=== PATIENT | male | born 1945 | race Caucasian/White ===

== ENCOUNTER 2017-10-22 17:13 | Observation (INO) ==
--- NOTE | 2017-10-22 17:48 | Emergency Department Note ---
ED Disposition Clinical Impression: Vomiting and diarrhea, Alcohol consumption heavy, Muscle cramps, CAD (coronary artery disease) Disposition: Home, Self-Care Condition on Discharge: Fair - Critical Care Critical Care Time: No Attestation: On , the high probability of a clinically significant, sudden or life threatening deterioration of the following system(s) required my full and direct attention, intervention and personal management. The time I documented below is in addition to time spent performing reported procedures but includes the following listed in this critical care notation. Medical Decision Making - Tc Inquiry Pt receiving controlled substance: No Tc was queried for this patient: No Vital Signs: 10/22/17 17:24 10/22/17 17:28 10/22/17 18:45 Temperature 97.9 F Temperature Source Oral Pulse Rate [Left Radial] 90 94 H Pulse Rate [Orthostatic Lying Left Brachial] 92 H Pulse Rate [Orthostatic Sitting Left Brachial] 99 H Pulse Rate [Orthostatic Standing Left Brachial] 102 H Respiratory Rate 20 20 Blood Pressure [Orthostatic Lying Left Arm] 189/87 Blood Pressure [Orthostatic Sitting Left Arm] 142/84 Blood Pressure [Orthostatic Standing Left Arm] 159/100 Blood Pressure [Right Arm] 159/100 162/78 Blood Pressure Mean [Right Arm] 119 106 Blood Pressure Source [Right Arm] Automatic Cuff Automatic Cuff Blood Pressure Position [Right Arm] Sitting Sitting 02 Sat by Pulse Oximetry 99 99 Oxygen Delivery Method Room Air Room Air 10/22/17 20:03 Temperature Temperature Source Pulse Rate [Left Radial] 94 H Pulse Rate [Orthostatic Lying Left Brachial] Pulse Rate [Orthostatic Sitting Left Brachial] Pulse Rate [Orthostatic Standing Left Brachial] Respiratory Rate 18 Blood Pressure [Orthostatic Lying Left Arm] Blood Pressure [Orthostatic Sitting Left Arm] Blood Pressure [Orthostatic Standing Left Arm] Blood Pressure [Right Arm] 122/58 Blood Pressure Mean [Right Arm] 79 Blood Pressure Source [Right Arm] Automatic Cuff Blood Pressure Position [Right Arm] Supine 02 Sat by Pulse Oximetry 97 Oxygen Delivery Method Room Air - Lab Data Lab Results 10/22/17 17:45: WBC 9.7, RBC 5.12, Hgb 15.5, Hct 46.3, MCV 90.5, MCH 30.3, MCHC 33.5, RDW 14.7, Plt Count 211, MPV 7.7, Neut % (Auto) 92.1 H, Lymph % (Auto) 5.5 L, [place] % (Auto) 2.2, Eos % (Auto) 0.1, Baso % (Auto) 0.1, Neut # (Auto) 8.9 H, Lymph # (Auto) 0.5 L, [place] # (Auto) 0.2, Eos # (Auto) 0.0, Baso # (Auto) 0.0, Total Counted 100, Neutrophils % (Manual) 93 H, Lymphocytes % (Manual) 4 L , Atypical Lymphs % 2.0, Monocytes % (Manual) 1 L, Platelet Estimate Normal, RBC Morphology Normal 10/22/17 17:45: Sodium 141, Potassium 4.5, Chloride 106, Carbon Dioxide 27, Anion Gap 12.5, BUN 31 H, Creatinine 1.54 H, Estimated Creat Clear 58, Estimated GFR 44 L, Est GFR ( Amer) 54 L, Glucose 184 H, Calcium 9.3, Total Bilirubin 1.1 H, AST 19, ALT 27, Alkaline Phosphatase 134 H, Total Protein 7.9, Albumin 4.6, Globulin 3.3 H, Albumin/Globulin Ratio 1.4, Plasma/ Serum Alcohol 0 10/22/17 17:45: Magnesium 2.0, Total Creatine Kinase 110, CK-MB (CK-2) 1.3, CK- MB (CK-2) Rel Index 1.2, Troponin I < 0.02 10/22/17 19:00: Urine Opiates Screen Negative, Urine Methadone Screen Negative, Ur Barbituates Screen Negative, Ur Phencyclidine Scrn Negative, Ur Amphetamines Screen Negative, U Benzodiazepines Scrn Negative, Urine Cocaine Screen Negative , U Marijuana (THC) Screen Negative Result diagrams: 10/22/17 17:45 10/22/17 17:45 Orders (Tests/Meds): ED MEDICATIONS Discontinued Medications Generic Name Dose Route Start Last Admin Trade Name Freq PRN Reason Stop Dose Admin Famotidine 20 mg 10/22/17 19:40 10/22/17 19:43 Pepcid 20mg/2ml Vial IV 10/22/17 19:41 20 mg ONCE ONE Administration Sodium Chloride 1,000 mls @ 999 mls/hr 10/22/17 17:45 10/22/17 17:41 Sod Chlor 0.9% 1000ml Bag IV 10/22/17 18:45 999 mls/hr .Q1H1M VERONICA Administration Ondansetron HCl 4 mg 10/22/17 17:40 10/22/17 17:41 Zofran 4mg/2ml Vial IV 10/22/17 17:41 4 mg ONCE ONE Administration Promethazine HCl 12.5 mg 10/22/17 19:39 10/22/17 19:43 Phenergan 25mg/Ml 1ml Vial IV 10/22/17 19:40 12.5 mg ONCE ONE Administration ORDERS Category Date Time Status Diarrhea Panel, PCR Stat Lab 10/22/17 17:43 Ordered ECG Request by /Nse Stat Y 10/22/17 17:43 Ordered - Radiology Data #1 Image(s): Chest, Abdomen Image Reviewed: Yes I reviewed the patient's radiology image Preliminary Findings: Normal/NAD - ECG Data Tracing #1 Normal sinus rhythm 88/min baseline artifact normal P-wave QRS and T waves, no acute. ECG initial impression date: 10/22/17 ECG initial impression time: 17:51 Medical Decision Narrative: After receiving 1 L of IV fluids the patient was unable to produce urine. Attempted p.o. intake and he was dry heaving. He was agreeable for admission so I called Dr. esparza for IV fluid rehydration and anti-emetics. She accepted. She was at hemodynamically and neurologically stable condition. Weakness HPI - General Chief complaint: Weakness Stated complaint: to much sun Time Seen by Provider: 10/22/17 17:25 Mode of Arrival: Wheelchair Limitations: No Limitations Description of Symptoms (Recalled from ER Triage Doc. by RN): Has been out in the heat playing golf since and some alcohol, woke up this am just sick of his stomach and tired. - History of Present Illness HPI Narrative: 72 years old white male visiting from [place]. He has history of colonic polyps coronary artery disease hypertension hyperlipidemia and status post CABG 2 years ago. He arrived 48 hours ago been drinking since his arrival. [place] he vomited 3 followed by 2 bouts of loose bowel movement. He denies having hematemesis coffee-ground emesis melanotic stool or bleeding per rectum. He denies headache chest pain or abdominal pain. Denies dysuria hematuria or frequency. He complains of muscle cramps in his back. More than 2 weeks ago we had an multiple cases of gastroenteritis. Also has been in the sun all day. Complaint: generalized weakness Onset (ago): hour(s) (2 hours ago.) Duration: constant Location: generalized Relieving factors: none Exacerbating factors: none Associated symptoms: nausea/vomiting, other (muscle cramps. ) - Related Data Home Medications Medication Instructions Recorded Confirmed Aspirin 81 mg PO DAILY 10/22/17 10/22/17 B12/Levomefolate Calcium/B-6 1 each PO DAILY 10/22/17 10/22/17 [Foltx Tablet] Benazepril HCl [Lotensin] 20 mg PO DAILY 10/22/17 10/22/17 Clopidogrel Bisulfate [Plavix] 75 mg PO DAILY 10/22/17 10/22/17 Meloxicam 7.5 mg PO DAILY 10/22/17 10/22/17 Metoprolol Succinate [Toprol Xl] 100 mg PO DAILY 10/22/17 10/22/17 Pantoprazole Sodium [Protonix 40mg 40 mg PO DAILY 10/22/17 10/22/17 tablet] Polyethylene Glycol 3350 [Miralax 17 gm PO DAILY 10/22/17 10/22/17 17gm Packet] Simvastatin [Zocor] 40 mg PO DAILY 10/22/17 10/22/17 Allergies Allergy/AdvReac Type Severity Reaction Status Date / Time shellfish derived Allergy Nausea Verified 10/22/17 17:34 [facility] History I have reviewed the patient's past medical history: Yes Medical History: Denies:: Diabetes Mellitus Type 1, Diabetes Mellitus Type 2 Laterality Cases: Right: Total Hip Replacement, Total Knee Replacement - Social History Alcohol Intake: current Alcohol Intake Frequency:: holidays/special occasions only - Psychiatric History Expresses thoughts of harming self/others: None Suicide Plan Description: No Plan ROS Obtained: Yes All systems reviewed & no additional complaints Physical Exam - General General appearance: alert, in no apparent distress - Head Head exam: atraumatic, normocephalic, normal inspection - Eye Eye exam: Present: normal appearance, PERRL, EOMI - ENT ENT exam: Present: normal exam, normal oropharynx, mucous membranes moist, TM's normal bilaterally, normal external ear exam - Neck Neck exam: Present: normal inspection, full ROM, trachea midline. Absent: meningismus, lymphadenopathy - Chest Chest inspection: Present: normal inspection, symmetric chest wall rise. Absent : tenderness - Respiratory Respiratory exam: Present: normal lung sounds bilaterally. Absent: respiratory distress - Cardiovascular Cardiovascular exam: Present: regular rate, normal rhythm. Absent: JVD - Abdominal Exam Abdominal exam: Present: soft, normal bowel sounds, other (Benign abdominal exam. ). Absent: distention, tenderness, guarding, rebound, rigidity, tenderness at McBurney's Point - exam: Present: normal inspection, normal testicular lie, circumcised. Absent : testicular tenderness, urethral discharge - Extremities Exam Extremities exam: Present: normal inspection, full ROM, normal capillary refill. Absent: tenderness, calf tenderness - Back Exam Back exam: Present: normal inspection. Absent: tenderness - Neurological Exam Neurological exam: Present: alert, oriented X3, CN II-XII intact, motor sensory deficit, reflexes normal - Psychiatric Psychiatric exam: Present: normal affect, normal mood - Skin Skin exam: Present: warm, dry, intact, normal color - Lymphatic Lymphatic Findings: no adenopathy
[2017-10-22 18:02] LABS: Basophils % 0.1 % (0.1-2.0); Eosinophils % 0.1 % (0.1-12.0); Hematocrit 46.3 % (42.0-52.0); Hemoglobin 15.5 g/dL (14.1-18.0); Lymphocytes # 0.5 K/mm3 (0.7-4.5); Lymphocytes % 5.5 K/mm3 (10-50); Mean Corpuscular HGB Conc 33.5 g/dL (31.8-35.4); Mean Corpuscular Hemoglobin 30.3 pg (27.0-31.2); Mean Corpuscular Volume 90.5 fl (80-94); Mean Platelet Volume 7.7 fl (7.4-10.4); Monocytes # 0.2 K/mm3 (0.1-1.0); Monocytes % 2.2 % (1.7-9.3); Neutrophils # 8.9 K/mm3 (1.8-7.8); Neutrophils % 92.1 % (37.0-80.0); Platelet Count 211 K/mm3 (142-424); Red Blood Count 5.12 M/mm3 (4.60-6.20); Red Cell Distribution Width 14.7 % (11.5-17.5); White Blood Count 9.7 K/mm3 (4.8-10.8)
[2017-10-22 18:06] LABS: Albumin Level 4.6 gm/dL (3.4-5.0); Albumin/Globulin Ratio 1.4 (1.1-1.8); Anion Gap 12.5 mEq/L (5-15); Bilirubin,Total 1.1 mg/dL (0.2-1.0); Calcium 9.3 mg/dL (8.5-10.1); Globulin 3.3 gm/dl (1.3-3.2); Potassium 4.5 mmoL/L (3.5-5.1); Total Protein,Serum 7.9 gm/dL (6.4-8.2)
[2017-10-22 18:13] LABS: Creatine Kinase 110 U/L (39-308)
[2017-10-22 18:14] LABS: Lymphocytes % 4 % (10-50); Monocytes % 1 % (2-9); Neutrophils % 93 % (42-76); RBC Morphology Normal; Total Cells Counted 100
[2017-10-22 19:16] LABS: Amphetamine/Metha Screen,Urine Negative ng/mL (<1000); Barbiturates Screen,Urine Negative ng/mL (<200); Benzodiazepines Screen,Urine Negative ng/mL (<200); Cocaine Screen,Urine Negative ng/mL (<300); Methadone Screen,Urine Negative ng/mL (<300); Opiate Screen,Urine Negative ng/mL (<300); Phencyclidine Screen,Urine Negative ng/mL (<25)
[2017-10-22 23:34] LABS: Cannabinoid Screen,Urine Negative ng/mL (<50)
[2017-10-23 06:54] LABS: Basophils % 0.1 % (0.1-2.0); Eosinophils % 0.2 % (0.1-12.0); Hematocrit 38.6 % (42.0-52.0); Hemoglobin 12.4 g/dL (14.1-18.0); Lymphocytes # 1.3 K/mm3 (0.7-4.5); Lymphocytes % 16.4 K/mm3 (10-50); Mean Corpuscular HGB Conc 32.2 g/dL (31.8-35.4); Mean Corpuscular Hemoglobin 29.8 pg (27.0-31.2); Mean Corpuscular Volume 92.5 fl (80-94); Mean Platelet Volume 7.9 fl (7.4-10.4); Monocytes # 0.5 K/mm3 (0.1-1.0); Monocytes % 6.8 % (1.7-9.3); Neutrophils # 5.9 K/mm3 (1.8-7.8); Neutrophils % 76.4 % (37.0-80.0); Platelet Count 148 K/mm3 (142-424); Red Blood Count 4.17 M/mm3 (4.60-6.20); Red Cell Distribution Width 14.8 % (11.5-17.5); White Blood Count 7.7 K/mm3 (4.8-10.8)
[2017-10-23 07:08] LABS: Anion Gap 9.8 mEq/L (5-15); Potassium 3.8 mmoL/L (3.5-5.1)
[2017-10-23 07:11] LABS: Calcium 7.9 mg/dL (8.5-10.1)
[2017-10-23 07:40] VITALS: BP 131/53
--- NOTE | 2017-10-23 08:34 | Pharmacy Consult Notes ---
[facility] Pharmacy VTE Monitoring - Patient Demographics Admission date: 10/22/17 Report Date: 10/23/17 Time: 08:34 Allergies/Adverse Reactions: Patient Allergies shellfish derived Allergy (Verified 10/22/17 17:34) Nausea Height: 1.85 m Weight: 99.138 kg Patient Problems: Current Active Problems Vomiting and diarrhea (Acute) Alcohol consumption heavy (Acute) Muscle cramps (Acute) CAD (coronary artery disease) (Acute) - VTE Risk Labs: VTE Related Lab Results Hgb 12.4 g/dL (14.1-18.0) L D 10/23/17 06:34 Hct 38.6 % (42.0-52.0) L 10/23/17 06:34 Plt Count 148 K/mm3 (142-424) D 10/23/17 06:34 BUN 24 mg/dL (7-18) H 10/23/17 06:34 Creatinine 1.15 mg/dL (0.70-1.30) D 10/23/17 06:34 Estimated Creat Clear 79 mL/min (0-300) 10/23/17 06:34 Was VTE Risk Assessment Performed: Yes VTE Score: 7 VTE Risk Level: Moderate Risk - Prophylaxis VTE Prophylaxis Ordered?: Yes Types of VTE Prophylaxis: TEDS Knee High Location of Applied Device: Bilateral Lower Extremeties - VTE Diagnosis Confirmed Treatment or plan recommended: Continue Current Treatment
--- NOTE | 2017-10-23 10:33 | H&P/Discharge Summary ---
General - General Admission date:: 10/22/17 Discharge date: 10/23/17 *Admission Date: 10/22/17 *Chief complaint: Nausea and vomiting *History of present illness: Patient is a 72-year-old male who came into our facility complaining of nausea and vomiting for the past day or 2. He is out of town. He is from [place]. He was here visiting his friend. He was out on the golf course a lot playing with his friends for the past 3 days. He admits to drinking heavily with his friends as he is on medication. He is also admitted to not drinking enough water. Upon admission he felt lethargic and dehydrated. He denied any fever, chills, dysuria, chest pain, shortness of breath, diarrhea, constipation upon admission. Positive for nausea and vomiting, dry heaving. He has a concurrent medical history of CAD and had CABG in the past. [facility] History I have reviewed the patient's past medical history: Yes Medical History: Reports:: Cancer (Skin), Coronary Artery Disease, Hyperlipidemia Denies:: Diabetes Mellitus Type 1, Diabetes Mellitus Type 2, MRSA Other Medical History: Reports: Arthritis Laterality Cases: Right: Total Hip Replacement, Total Knee Replacement Other Surgeries: Yes: CABG, Cardiac Catheterization, Cholecystectomy, Colonoscopy, EGD, Skin Cancer Excision Amputation: No Fractures: No - *Social History Educational Level: Attended College Smoking Status: Former smoker Alcohol Intake: current Alcohol Intake Frequency:: a few times a week Occupational Status: retired Housing: house Household Members: spouse - Psychiatric History Expresses thoughts of harming self/others: None Suicide Plan Description: No Plan *Family Hx:: Heart Attack, Thyroid Disorder Review of Systems - Constitutional Denies chills, Denies fever(s) - Eyes Denies blurry vision - ENT Denies bleeding gums, Denies dry mouth - *Cardiovascular Reports excessive sweating, Denies chest pain, Denies chest pain at rest, Denies chest pain with activity, Denies shortness of breath, Denies shortness of breath with activity, Denies irregular heart rhythm, Denies lightheadedness - *Respiratory Denies chest congestion, Denies cough - *Gastrointestinal Reports nausea, Reports vomiting, Denies abdominal pain Comments: Resolved upon receiving medication, Zofran and Phenergan - *Genitourinary Denies difficulty urinating - *Musculoskeletal Denies abnormal walking - Integumentary/Breasts Denies rash - *Neurologic Denies abnormal walking, Denies dizziness - Psychiatric Denies abnormal sleep pattern - Endocrine Reports excessive sweating, Denies cold intolerance Comments: Consistent with the dehydration - Allergic/Immunologic Denies GI upset with certain foods Exam Vital signs and Labs for Last 24 Hours: Temp Pulse Resp BP Pulse Ox 99.9 F H 77 20 131/53 96 10/23/17 07:38 10/23/17 07:38 10/23/17 07:38 10/23/17 07:38 10/23/17 07:38 Laboratory Results - last 24 hr 10/22/17 17:45: WBC 9.7, RBC 5.12, Hgb 15.5, Hct 46.3, MCV 90.5, MCH 30.3, MCHC 33.5, RDW 14.7, Plt Count 211, MPV 7.7, Neut % (Auto) 92.1 H, Lymph % (Auto) 5.5 L, [place] % (Auto) 2.2, Eos % (Auto) 0.1, Baso % (Auto) 0.1, Neut # (Auto) 8.9 H, Lymph # (Auto) 0.5 L, [place] # (Auto) 0.2, Eos # (Auto) 0.0, Baso # (Auto) 0.0, Total Counted 100, Neutrophils % (Manual) 93 H, Lymphocytes % (Manual) 4 L , Atypical Lymphs % 2.0, Monocytes % (Manual) 1 L, Platelet Estimate Normal, RBC Morphology Normal 10/22/17 17:45: Sodium 141, Potassium 4.5, Chloride 106, Carbon Dioxide 27, Anion Gap 12.5, BUN 31 H, Creatinine 1.54 H, Estimated Creat Clear 58, Estimated GFR 44 L, Est GFR ( Amer) 54 L, Glucose 184 H, Calcium 9.3, Total Bilirubin 1.1 H, AST 19, ALT 27, Alkaline Phosphatase 134 H, Total Protein 7.9, Albumin 4.6, Globulin 3.3 H, Albumin/Globulin Ratio 1.4, Plasma/ Serum Alcohol 0 10/22/17 17:45: Magnesium 2.0, Total Creatine Kinase 110, CK-MB (CK-2) 1.3, CK- MB (CK-2) Rel Index 1.2, Troponin I < 0.02 10/22/17 19:00: Urine Opiates Screen Negative, Urine Methadone Screen Negative, Ur Barbituates Screen Negative, Ur Phencyclidine Scrn Negative, Ur Amphetamines Screen Negative, U Benzodiazepines Scrn Negative, Urine Cocaine Screen Negative , U Marijuana (THC) Screen Negative 10/23/17 06:34: WBC 7.7, RBC 4.17 L, Hgb 12.4 L D, Hct 38.6 L, MCV 92.5, MCH 29.8, MCHC 32.2, RDW 14.8, Plt Count 148 D, MPV 7.9, Neut % (Auto) 76.4, Lymph % (Auto) 16.4, [place] % (Auto) 6.8, Eos % (Auto) 0.2, Baso % (Auto) 0.1, Neut # ( Auto) 5.9, Lymph # (Auto) 1.3, [place] # (Auto) 0.5, Eos # (Auto) 0.0, Baso # (Auto ) 0.0 10/23/17 06:34: Sodium 145, Potassium 3.8, Chloride 113 H, Carbon Dioxide 26, Anion Gap 9.8, BUN 24 H, Creatinine 1.15 D, Estimated Creat Clear 79, Estimated GFR 62, Est GFR ( Amer) 75 D, Glucose 102 D, Calcium 7.9 L D I & O for Last 24 hours: Intake & Output 10/20/17 10/21/17 10/22/17 10/23/17 11:59 11:59 11:59 11:59 Intake Total 1151 / 1151 Balance 1151 / 1151 Weight 218 lb 9 oz - Constitutional no acute distress - *Routine HEENT Exam Head: Present: normocephalic ENT: Present: mucous membranes moist - *Routine Neck Exam Present: supple, full ROM - Routine Chest/Breast/Axilla Exam Chest wall: Absent: tenderness - *Routine Respiratory Exam Present: CTA bilaterally. Absent: accessory muscle use - *Routine Cardiovascular Exam Present: RRR - *Routine Abdominal Exam Present: soft, normoactive bowel sounds. Absent: tenderness - *Routine Extremities Exam Absent: edema - *Routine Skin Exam Absent: dry Hospital Course Hospital Course: Patient was admitted to our facility for intractable nausea and vomiting and acute renal failure secondary to prerenal cause, dehydration. He was given IV fluids resuscitation, Zofran and Phenergan for his nausea and vomiting. On day 2 of admission patient acute renal failure resolved with the creatinine of 1.15 upon discharge. He is nausea and vomiting has also resolved upon Zofran and Phenergan administration. He is feeling better and is wanting to go home. Upon being medically stable patient is discharged home with the Zofran 4 mg tablets as needed for nausea. Results Labs on day of discharge: Labs from last 24 hours 10/23/17 10/23/17 10/22/17 06:34 06:34 19:00 WBC 7.7 RBC 4.17 L Hgb 12.4 L D Hct 38.6 L MCV 92.5 MCH 29.8 MCHC 32.2 RDW 14.8 Plt Count 148 D MPV 7.9 Neut % (Auto) 76.4 Lymph % (Auto) 16.4 [place] % (Auto) 6.8 Eos % (Auto) 0.2 Baso % (Auto) 0.1 Neut # (Auto) 5.9 Lymph # (Auto) 1.3 [place] # (Auto) 0.5 Eos # (Auto) 0.0 Baso # (Auto) 0.0 Total Counted Neutrophils % (Manual) Lymphocytes % (Manual) Atypical Lymphs % Monocytes % (Manual) Platelet Estimate RBC Morphology Sodium 145 Potassium 3.8 Chloride 113 H Carbon Dioxide 26 Anion Gap 9.8 BUN 24 H Creatinine 1.15 D Estimated Creat Clear 79 Estimated GFR 62 Est GFR ( Amer) 75 D Glucose 102 D Calcium 7.9 L D Magnesium Total Bilirubin AST ALT Alkaline Phosphatase Total Creatine Kinase CK-MB (CK-2) CK-MB (CK-2) Rel Index Troponin I Total Protein Albumin Globulin Albumin/Globulin Ratio Urine Opiates Screen Negative Urine Methadone Screen Negative Ur Barbituates Screen Negative Ur Phencyclidine Scrn Negative Ur Amphetamines Screen Negative U Benzodiazepines Scrn Negative Urine Cocaine Screen Negative U Marijuana (THC) Screen Negative Plasma/Serum Alcohol 10/22/17 10/22/17 10/22/17 17:45 17:45 17:45 WBC 9.7 RBC 5.12 Hgb 15.5 Hct 46.3 MCV 90.5 MCH 30.3 MCHC 33.5 RDW 14.7 Plt Count 211 MPV 7.7 Neut % (Auto) 92.1 H Lymph % (Auto) 5.5 L [place] % (Auto) 2.2 Eos % (Auto) 0.1 Baso % (Auto) 0.1 Neut # (Auto) 8.9 H Lymph # (Auto) 0.5 L [place] # (Auto) 0.2 Eos # (Auto) 0.0 Baso # (Auto) 0.0 Total Counted 100 Neutrophils % (Manual) 93 H Lymphocytes % (Manual) 4 L Atypical Lymphs % 2.0 Monocytes % (Manual) 1 L Platelet Estimate Normal RBC Morphology Normal Sodium 141 Potassium 4.5 Chloride 106 Carbon Dioxide 27 Anion Gap 12.5 BUN 31 H Creatinine 1.54 H Estimated Creat Clear 58 Estimated GFR 44 L Est GFR ( Amer) 54 L Glucose 184 H Calcium 9.3 Magnesium 2.0 Total Bilirubin 1.1 H AST 19 ALT 27 Alkaline Phosphatase 134 H Total Creatine Kinase 110 CK-MB (CK-2) 1.3 CK-MB (CK-2) Rel Index 1.2 Troponin I < 0.02 Total Protein 7.9 Albumin 4.6 Globulin 3.3 H Albumin/Globulin Ratio 1.4 Urine Opiates Screen Urine Methadone Screen Ur Barbituates Screen Ur Phencyclidine Scrn Ur Amphetamines Screen U Benzodiazepines Scrn Urine Cocaine Screen U Marijuana (THC) Screen Plasma/Serum Alcohol 0 DS: Diagnosis - Discharge Diagnosis (1) Viral gastroenteritis Start date: 10/22/17 Status: Acute (2) Acute renal failure (ARF) Start date: 10/22/17 Status: Resolved (3) Intractable nausea and vomiting Start date: 10/22/17 Status: Resolved (4) CAD (coronary artery disease) Start date: 10/22/17 Status: Chronic Discharge Medications Discharge Medications: Home Medications Medication Instructions Recorded Confirmed Type Aspirin 81 mg PO DAILY 10/22/17 10/22/17 History B12/Levomefolate Calcium/B-6 1 each PO DAILY 10/22/17 10/22/17 History [Foltx Tablet] Benazepril HCl [Lotensin] 20 mg PO DAILY 10/22/17 10/22/17 History Clopidogrel Bisulfate [Plavix] 75 mg PO DAILY 10/22/17 10/22/17 History Meloxicam 7.5 mg PO DAILY 10/22/17 10/22/17 History Metoprolol Succinate [Toprol Xl] 100 mg PO DAILY 10/22/17 10/22/17 History Pantoprazole Sodium [Protonix 40mg 40 mg PO DAILY 10/22/17 10/22/17 History tablet] Polyethylene Glycol 3350 [Miralax 17 gm PO DAILY PRN 10/22/17 10/22/17 History 17gm Packet] Simvastatin [Zocor] 40 mg PO DAILY 10/22/17 10/22/17 History Disposition Disposition: Home, Self-Care
== END 2017-10-23 10:54 | disposition home or self-care (01) ==
LOC: 2ND 17:13 → ER 17:13 → 2ND 20:38
PROVIDERS: ADMIT Emergency Medicine; ATTEND Emergency Medicine